=== PATIENT | female | born 1965 | race Caucasian/White ===

== ENCOUNTER 2020-06-01 09:09 | Outpatient (CLI) | payer OTHER | END 2020-06-01 09:10 | disposition home or self-care (01) | LOC: CSHWCC 09:09 | PROVIDERS: ATTEND Nurse Practitioner Family | DX: L89.322 Pressure ulcer of left buttock, stage 2 (principal); L89.152 Pressure ulcer of sacral region, stage 2; L89.154 Pressure ulcer of sacral region, stage 4; B37.89 Other sites of candidiasis; F32.9 Major depressive disorder, single episode, unspecified; G82.21 Paraplegia, complete; G89.4 Chronic pain syndrome; L08.89 Other specified local infections of the skin and subcutaneous tissue; B96.89 Other specified bacterial agents as the cause of diseases classified elsewhere; M81.0 Age-related osteoporosis without current pathological fracture | CPT/HCPCS: 99214; G0463 ==

== ENCOUNTER 2020-06-22 12:52 | Outpatient (CLI) | payer OTHER | END 2020-06-22 12:53 | disposition home or self-care (01) | LOC: CSHWCC 12:52 | PROVIDERS: ATTEND Nurse Practitioner Family | DX: L89.154 Pressure ulcer of sacral region, stage 4 (principal); B37.89 Other sites of candidiasis; M81.0 Age-related osteoporosis without current pathological fracture; F32.9 Major depressive disorder, single episode, unspecified; G82.21 Paraplegia, complete; G89.4 Chronic pain syndrome | CPT/HCPCS: 99213; G0463 ==